=== PATIENT | female | born 1995 | race Caucasian/White ===

== ENCOUNTER 2021-03-08 06:26 | Emergency (ER) | payer BC, SELFPAY ==
[2021-03-08 06:28] VITALS: BP 119/74; PULSE 77; RESP 16; TEMP 36.6; O2SAT 97; BMI 34.0
--- NOTE | 2021-03-08 06:56 | XR_ITS ---
PROCEDURE INFORMATION: Exam: XR Chest Exam date and time: 03/08/2021 6:56 AM Age: 25 years old Clinical indication: Cough; Additional info: Congestion TECHNIQUE: Imaging protocol: XR of the chest. Views: 2 views. COMPARISON: No relevant prior studies available. FINDINGS: Lungs: Unremarkable. No consolidation. Pleural spaces: Unremarkable. No pleural effusion. No pneumothorax. Heart/Mediastinum: Unremarkable. No cardiomegaly. Bones/joints: Unremarkable. IMPRESSION: No acute findings.
[2021-03-08 07:07] LABS: Coronavirus 19, PCR Not Detected (NotDetected); Influenza A, PCR Not Detected (NotDetected); Influenza B, PCR Not Detected (NotDetected)
[2021-03-08 07:38] LABS: Basophils # 0.1 K/mm3 (0-0.2); Basophils % 1.4 % (0.1-2.0); Eosinophils # 0.1 K/mm3 (0.0-0.4); Eosinophils % 1.9 % (0.1-12.0); Hematocrit 41.3 % (37.0-47.0); Hemoglobin 13.5 g/dL (12.2-16.2); Lymphocytes # 1.8 K/mm3 (0.7-4.5); Lymphocytes % 29.6 % (10-50); Mean Corpuscular HGB Conc 32.6 g/dL (31.8-35.4); Mean Corpuscular Volume 85.8 fl (81-99); Mean Platelet Volume 9.6 fl (7.4-10.4); Monocytes # 0.3 K/mm3 (0.1-1.0); Monocytes % 5.2 % (1.7-9.3); Neutrophils # 3.8 K/mm3 (1.8-7.8); Platelet Count 218 K/mm3 (142-424); Red Blood Count 4.81 M/mm3 (4.20-5.40); Red Cell Distribution Width 13.5 % (11.5-17.5)
[2021-03-08 08:06] LABS: Alanine Aminotransferase 23 U/L (12-78); Albumin Level 4.1 g/dl (3.5-5.0); Albumin/Globulin Ratio 1.4 (1.1-1.8); Alkaline Phosphatase 82 U/L (38-126); Anion Gap 14.1 mEq/L (5-15); Aspartate Amino Transferase 30 U/L (14-36); Bilirubin,Total 0.5 mg/dl (0.2-1.3); Blood Urea Nitrogen 16 mg/dl (7-17); Calcium 8.8 mg/dl (8.4-10.2); Carbon Dioxide 23 mmol/L (22.0-30.0); Chloride 106 mmol/L (98-107); Creatinine Clearance Estimated 240 mL/min (50-200); Estimated Glomerular Filt Rate 124 ml/min (>60); GFR (African American) 150 ML/MIN (>60); Glucose 101 mg/dl (74-100); Potassium 4.1 mmoL/L (3.5-5.1); Sodium 139 mmol/L (136-145); Total Protein,Serum 7.1 g/dl (6.3-8.2)
[2021-03-08 08:11] LABS: C-Reactive Protein 1.1 mg/L (0-4)
--- NOTE | 2021-03-08 08:22 | [facility].EDGENADL ---
ED Disposition Clinical Impression: Viral infection Disposition: Home, Self-Care Condition on Discharge: Good Additional Instructions: [id number] Tylenol/Motrin for aches and pains. Zofran for nausea. PCP in 1 to 2 days. Prescriptions: Ondansetron [Zofran 4mg ODT] 4 mg PO TIDP PRN #10 tab PRN Reason: Nausea Transmission Status: Pending to [facility] [id number] Referrals: Provider,Referral, [Primary Care Provider] - 3 days Time of Disposition: 08:25 - Critical Care Critical Care Time: No Attestation: On 03/08/21, the high probability of a clinically significant, sudden or life threatening deterioration of the following system(s) required my full and direct attention, intervention and personal management. The time I documented below is in addition to time spent performing reported procedures but includes the following listed in this critical care notation. Medical Decision Making - Medical Records Medical records reviewed: Yes: I reviewed the patient's medical records. - [facility] Inquiry Pt receiving controlled substance: No Vital Signs: 03/08/21 06:28 Temperature 97.8 F Temperature Source Oral Pulse Rate [Right] 77 Respiratory Rate 16 Blood Pressure [Right Arm] 119/74 Blood Pressure Mean [Right Arm] 89 02 Sat by Pulse Oximetry 97 - Lab Data Lab results reviewed: Yes: I reviewed the patient's lab results. Lab Results 03/08/21 06:30: SARS-CoV-2 (PCR) Not detected, Influenza A Untype (PCR) Not detected, Influenza Type B (PCR) Not detected 03/08/21 07:20: WBC 6.0, RBC 4.81, Hgb 13.5, Hct 41.3, MCV 85.8, MCH 28.0, MCHC 32.6, RDW 13.5, Plt Count 218, MPV 9.6, Neut % (Auto) 62.0, Lymph % (Auto) 29.6, [place] % (Auto) 5.2, Eos % (Auto) 1.9, Baso % (Auto) 1.4, Neut # (Auto) 3.8, Lymph # (Auto) 1.8, [place] # (Auto) 0.3, Eos # (Auto) 0.1, Baso # (Auto) 0.1 03/08/21 07:20: Sodium 139, Potassium 4.1, Chloride 106, Carbon Dioxide 23, Anion Gap 14.1, BUN 16, Creatinine 0.60, Estimated Creat Clear 240, Estimated GFR 124, Est GFR ( Amer) 150, Glucose 101 H, Calcium 8.8, Total Bilirubin 0.5, AST 30, ALT 23, Alkaline Phosphatase 82, C-Reactive Protein 1.1, Total Protein 7.1, Albumin 4.1, Globulin 3.0, Albumin/Globulin Ratio 1.4 Result diagrams: 03/08/21 07:20 03/08/21 07:20 Orders (Tests/Meds): ED MEDICATIONS Discontinued Medications Generic Name Dose Route Start Last Admin Trade Name Freq PRN Reason Stop Dose Admin Dexamethasone Sodium Phosphate 10 mg 03/08/21 06:58 03/08/21 07:03 Dexamethasone 4mg/Ml 5ml Mdv IV 03/08/21 06:59 10 mg ONCE ONE Administration Sodium Chloride 1,000 mls @ 999 mls/hr 03/08/21 07:00 03/08/21 07:04 Sod Chlor 0.9% 1000ml Bag IV 03/08/21 08:00 999 mls/hr .Q1H1M MYRNA Administration Ketorolac Tromethamine 30 mg 03/08/21 06:58 03/08/21 07:04 Ketorolac 30mg/Ml Vial IV 03/08/21 06:59 30 mg ONCE ONE Administration Ondansetron HCl 4 mg 03/08/21 06:58 03/08/21 07:04 Ondansetron 4mg/2ml Vial IV 03/08/21 06:59 4 mg ONCE ONE Administration ORDERS Category Date Time Status Chest XR 2 view (NOT portable) [XR chest 2V] Stat Exams 03/08/21 06:56 Taken C-Reactive Protein Stat Lab 03/08/21 07:20 Results Complete Blood Count Auto Diff Stat Lab 03/08/21 07:20 Results Comprehensive Metabolic Panel Stat Lab 03/08/21 07:20 Results Erythrocyte Sedimentation Rate Stat Lab 03/08/21 07:20 Results Procalcitonin Stat Lab 03/08/21 07:20 Results - Radiology Data #1 Image(s): Chest Image Reviewed: Yes I reviewed the patient's radiology image Preliminary Findings: Normal/NAD Medical Decision Narrative: 25yo F evaluated for runny nose, nausea vomiting. Patient is in no acute distress. Laboratory studies are benign and chest x-ray is unremarkable. Patient is appropriate and stable for discharge home. General Adult HPI - General Chief complaint: Upper Respiratory Infection Stated complaint: sore throat,,vomiting,H
[2021-03-08 08:25] LABS: Erythrocyte Sedimentation Rate 10 mm/hr (0-20)
[2021-03-08 08:26] LABS: Procalcitonin < 0.030 ng/mL (0.0-2.0)
[2021-03-08 08:47] VITALS: BP 123/76; PULSE 80; RESP 18; TEMP 36.6; O2SAT 98
== END 2021-03-08 08:48 | disposition home or self-care (01) ==
PROVIDERS: Emergency Medicine; Emergency Provider Family Medicine
DX: B34.9 Viral infection, unspecified (principal); Z20.822 Contact with and (suspected) exposure to COVID-19
CPT/HCPCS: 36415; 71046; 80053; 84145; 85025; 85651; 86140; 96365; 96375; 99283; C9803; J2405; U0003; U0005